=== PATIENT | male | born 1960 | race Caucasian/White ===

== ENCOUNTER → 2018-11-02 | Day surgery (SDC) | payer BC ==
[2013-12-28 10:52] VITALS: BP 131/97
[~2018-11-02] MED LIST: NO HOME MEDICATIONS
== END ==
LOC: MSO 08:13
DX: Z12.11 Encounter for screening for malignant neoplasm of colon (principal); Z86.010 Personal history of colon polyps; Z79.82 Long term (current) use of aspirin
CPT/HCPCS: 00812; J2704; J7120

== ENCOUNTER 2021-12-11 10:02 | Emergency (ER) | payer BC ==
[~2021-12-11] VITALS: Ht 185.4 cm; Wt 88.6 kg
[2021-12-11 11:21] LABS: HEMATOCRIT 33.5 % (42.0-52.0); HEMOGLOBIN 11.4 g/dL (13.5-18.0); MEAN CELL VOLUME 103 fl (78-100); MEAN CORPUSCULAR HEMOGLOBIN 35 pg (27-31); MEAN CORPUSCULAR HGB CONC 34 g/dL (33-37); MEAN PLATELET VOLUME 9.9 fl (7.4-10.4); PLATELET COUNT 168 K/mm3 (130-400); RED BLOOD COUNT 3.25 M/mm3 (4.20-5.60); RED CELL DISTRIBUTION WIDTH 17.2 % (11.5-14.5)
[2021-12-11 11:26] LABS: ALBUMIN 3.5 g/dL (3.4-4.8); POTASSIUM 3.7 mmol/L (3.5-5.1)
[2021-12-11 11:27] LABS: CALCIUM 8.4 mg/dL (8.3-10.5)
[2021-12-11 11:29] LABS: TOTAL PROTEIN 5.3 g/dL (6.2-8.1)
[2021-12-11 11:31] LABS: TOTAL BILIRUBIN 1.9 mg/dL (0.2-1.2)
[2021-12-11 12:30] LABS: BAND 1 % (0-10); LYMPHOCYTE 5 % (20-51); METAMYELOCYTE 2 % (0-0); MONOCYTE 2 % (3-10); NEUTROPHILS 90 % (42-75)
[2021-12-11 12:31] LABS: POLYCHROMASIA 1+
[2021-12-11 12:59] LABS: URINE APPEARANCE CLEAR; URINE BILIRUBIN NEGATIVE (NEGATIVE); URINE BLOOD NEGATIVE (NEGATIVE); URINE COLOR YELLOW; URINE GLUCOSE NEGATIVE (NEGATIVE); URINE KETONE NEGATIVE (NEGATIVE); URINE LEUKOCYTE ESTERASE NEGATIVE (NEGATIVE); URINE MUCUS PRESENT (NOT PRESENT); URINE NITRATE NEGATIVE (NEGATIVE); URINE PROTEIN(semi-quant) NEGATIVE (NEGATIVE); URINE UROBILINOGEN NORMAL (NORMAL); URINE WBC 0-1 /hpf (0-3)
[2021-12-11] MEDS ORDERED: LEVOFLOXACIN750 MG PO (13:41)
[2021-12-11 13:51] VITALS: BP 105/63
== END 2021-12-11 13:52 | disposition home or self-care (01) ==
LOC: ED 10:02
PROVIDERS: Physician Assistant
DX: J32.0 Chronic maxillary sinusitis (principal); R94.4 Abnormal results of kidney function studies; D59.10 Autoimmune hemolytic anemia, unspecified; Z20.822 Contact with and (suspected) exposure to COVID-19
CPT/HCPCS: J7040